=== PATIENT | female | born 1975 | race Hispanic/Latino ===

== ENCOUNTER 2023-03-22 09:36 | Emergency (ER) | payer MEDICARE, MEDICAID ==
[2023-03-22] MEDS ORDERED: GASTROGRAFIN 30 ML BOT ONE (13:15)
== END 2023-03-22 13:13 | disposition home or self-care (01) ==
LOC: ERS 09:36
DX: K94.23 Gastrostomy malfunction (principal); Z79.899 Other long term (current) drug therapy
CPT/HCPCS: 43762; 74018; Q9963

== ENCOUNTER 2023-12-07 00:07 | Emergency (ER) | payer MEDICARE, MEDICAID | END 2023-12-07 01:26 | disposition home or self-care (01) | LOC: ERS 00:07 | DX: K94.23 Gastrostomy malfunction (principal) | CPT/HCPCS: 43762; 74018 ==

== ENCOUNTER 2024-07-08 23:56 | Emergency (ER) | payer OTHER | END 2024-07-09 01:24 | disposition home or self-care (01) | LOC: ERS 23:56 | DX: K94.23 Gastrostomy malfunction (principal) | CPT/HCPCS: 43762; 74018 ==